=== PATIENT | female | born 2000 | race Caucasian/White ===

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

== ENCOUNTER 2021-01-03 17:47 | Outpatient (CLI) | payer BC, OTHER ==
[2021-01-03 18:30] LABS: Appearance,Urine Clear (Clear); Bilirubin,Urine Negative (Negative); Blood,Urine Negative (Negative); Color,Urine Yellow; Glucose,Urine (UA) Negative (Negative); Ketones,Urine Negative (Negative); Leukocyte Esterase,Urine Negative (Negative); Nitrite,Urine Negative (Negative); PH, Urine 7.5 (5.0-8.0); Protein,Urine Negative (Negative); Specific Gravity,Urine 1.012 (1.001-1.035); Urobilinogen,Urine <2.0 mg/dL (<2.0)
[2021-01-03 18:48] VITALS: BP 115/71; PULSE 101; RESP 15; TEMP 98
--- NOTE | 2021-01-23 08:05 | P.MSEPDOC ---
Presenting Problems - Arrival Data Date of Arrival on Unit: 01/03/21 Time of Arrival on Unit: 17:52 Mode of Transport: Ambulatory - Complaint OB-Reason for Admission/Chief Complaint: Other Comment: pelvic and rectal pressure Medical History - Information : 2 Para: 1 Term: 1 : 0 Abortions: Spontaneous or Elective: 0 Number of Living Children: 1 - Gestational Age Gestational Age by TYRON (wks/days): 34 Weeks and 2 Days Review of Systems - Review of Systems Constitutional: No problems Breast: No problems ENT: No problems Cardiovascular: No problems Respiratory: No problems Gastrointestinal: No problems Genitourinary: No problems Musculoskeletal: No problems Neurological: No problems Skin: No problems Vital Signs - Temperature Temperature: 98 F Temperature Source: Temporal Artery Scan - Pulse Brachial Pulse Rate: 101 Pulse Assessment Method: Automatic Cuff - Respirations Respiratory Rate: 15 Oxygen Delivery Method: Room Air O2 Sat by Pulse Oximetry: 99 - Blood Pressure Right Arm Blood Pressure: 115/71 Blood Pressure Mean: 85 Blood Pressure Source: Automatic Cuff Medical Screen Scoring (Pre) - Cervical Exam Dilation: 0 cm = 0 Membranes: Intact - Uterine Contractions Frequency: N/A Duration: N/A Intensity: N/A - Maternal Vital Signs Maternal Temperature: N/A Maternal Blood Pressure: N/A Signs of Preeclampsia: N/A Maternal Respirations: N/A - Maternal Trauma Maternal Trauma: N/A - Assessment - Baby A Baseline FHR: 140 Heart Rate - NICHD Category: Category I (Normal) = 0 NST: Reactive Position: N/A Station: N/A - Total Score - Baby A Total Score - Baby A: 0 - Total Score - Baby B Total Score - Baby B: 0 - Total Score - Baby C Total Score - Baby C: 0 - Level of Risk - Baby A Level of Risk - Baby A: Low (0-5) - Level of Risk - Baby B Level of Risk - Baby B: Low (0-5) - Level of Risk - Baby C Level of Risk - Baby C: Low (0-5) Physician Notification (Pre) - Physician Notified Physician Notified Date: 01/03/21 Physician Notified Time: 18:20 New Order Received: Yes - Notification Comment Comment: pt FT, thick and high, posterior. U/A WNL. pt dc'd and will f/u in office on 01/13/2021 Disposition - Disposition OB Disposition: Triage, Discharge to home, Written follow up instructions reviewed Discharge Date: 01/03/21 Discharge Time: 18:35 I agree with the RN Medical Screening Exam: No Physician's MSE Comment: inadequate documentation Case reviewed; plan agreed upon as documented in EMR&OBIX.: No Diagnosis: pelvic pressure 34 weeks
== END 2021-01-03 18:35 | disposition home or self-care (01) ==
LOC: FBPOP 17:47
PROVIDERS: ATTEND Obstetrics & Gynecology
DX: O26.93 Pregnancy related conditions, unspecified, third trimester (principal); Z3A.34 34 weeks gestation of pregnancy
CPT/HCPCS: 59025; 81003; 99213

== ENCOUNTER 2021-02-06 06:00 | Inpatient (IN) | payer BC, OTHER ==
[2021-02-06] MEDS ORDERED: OXYTOCIN 10 UNIT/ML 1 ML VIAL IM PRN (06:15)
[2021-02-06] MEDS ORDERED: CARBOPROST TROMETHAMINE 250 MCG/ML 1 ML AMP IM PRN (06:15)
[2021-02-06] MEDS ORDERED: TERBUTALINE 1 MG/ML VIAL SQ PRN (06:15)
[2021-02-06] MEDS ORDERED: LIDOCAINE 0.5% (PF) 5 MG/ML (50 ML SDV) SQ PRN (06:15)
[2021-02-06] MEDS ORDERED: OXYTOCIN 30 UNITS/500 ML NS 30 UNIT in SALINE 1 500ML.BAG IV SCH ×2 (06:15→15:15)
[2021-02-06] MEDS ORDERED: METHYLERGONOVINE 0.2 MG/ML 1 ML AMP IM PRN (06:15)
[2021-02-06] MEDS ORDERED: AMPICILLIN 2,000 MG in SODIUM CHLORIDE 0.9% 100 ML IVPB ONE (06:30)
[2021-02-06] MEDS: LACTATED RINGERS 1,000 ML IV SCH ×3 (06:37→22:56)
[2021-02-06 06:42] LABS: Basophils % (A) 0 %; Eosinophils # (A) 0.1 k/uL (0-0.7); Eosinophils % (A) 1 %; HCT 41.2 % (34.0-46.0); HGB 14.1 gm/dL (11.4-16.0); Lymphocytes % (A) 15 %; MCH 32.5 pg (25.0-35.0); MCHC 34.3 g/dL (31.0-37.0); MCV 94.9 fL (80.0-100.0); Mean Platelet Volume 6.7; Monocytes # (A) 0.5 k/uL (0-1.0); Monocytes % (A) 8 %; Neutrophils # (A) 4.8 k/uL (1.3-7.7); Neutrophils % (A) 72 %; Platelet Count 205 k/uL (150-450); RBC 4.34 m/uL (3.80-5.40); RDW 13.4 % (11.5-15.5); WBC 6.7 k/uL (3.8-10.6)
[2021-02-06] MEDS ORDERED: BUTORPHANOL 1 MG/ML 1 ML VIAL IV PRN (08:33)
[2021-02-06] MEDS ORDERED: PRENATAL VIT-IRON-FOLIC ACID 1 EACH CAP PO SCH (09:00)
[2021-02-06] MEDS: AMPICILLIN 1,000 MG in SODIUM CHLORIDE 0.9% 50 ML IVPB SCH ×2 (10:32→21:11)
[2021-02-06] MEDS ORDERED: ROPIVACAINE 100 MG, fentaNYL (PF) 200 MCG in SODIUM CHLORIDE 0.9% 76 ML EPIDURAL ONE (13:22)
[2021-02-06] MEDS ORDERED: SIMETHICONE 80 MG CHEWABLE PO PRN (15:11)
[2021-02-06] MEDS ORDERED: diphenhydrAMINE 50 MG CAP PO PRN (15:11)
[2021-02-06] MEDS ORDERED: LANOLIN CREAM 5 GM TUBE TOPICAL PRN (15:11)
[2021-02-06] MEDS ORDERED: diphenhydrAMINE 25 MG CAP PO PRN (15:11)
[2021-02-06] MEDS ORDERED: ZOLPIDEM 5 MG TAB PO PRN (15:11)
[2021-02-06] MEDS ORDERED: ACETAMINOPHEN TAB 325 MG TAB PO PRN (15:11)
[2021-02-06] MEDS ORDERED: diphenhydrAMINE 50 MG/ML 1 ML VIAL IVP PRN ×2 (15:11)
[2021-02-06] MEDS ORDERED: BENZOCAINE/MENTHOL SPRAY 1 GM/SPRAY AEROSOL TOPICAL PRN (15:11)
[2021-02-06] MEDS ORDERED: HYDROCORTISONE 2.5% RECTAL CREAM 30 GM TUBE RECTAL PRN (15:11)
--- NOTE | 2021-02-06 15:14 | P.PROBDLV ---
Vaginal Delivery Note - . Vaginal Delivery Note: This is a 20-year-old at 39 and one sevenths weeks that presented to labor and delivery for elective induction of labor. Patient was admitted to labor and delivery Pitocin induction of labor was begun. Once regular contractions were noted amniotomy is performed and clear fluid was obtained. Patient pressed to labor eventually becoming uncomfortable and requesting epidural placement. Epidural was placed without difficulty by the anesthesia department. Patient progressed to complete began pushing and had a normal spontaneous vaginal delivery of a viable male infant at 1459, loose nuchal cord was delivered through. Weight of infant 7 lbs. 13 oz. and Apgars of 9 and 9 at one and 5 minutes respect weight. After two-minute delayed the umbilical cord was doubly clamped and cut and the placenta was delivered spontaneously intact with three- vessel cord being noted. On inspection the patient's vaginal vault bilateral labial lacerations were noted. Superficial on the left, 3 simple sutures of 4-0 chromic were used to obtain closure of the right labial laceration.. Hemostasis was appreciated. The uterus is noted be firm and below the umbilicus. Estimated blood loss 200 mL. All counts were noted be correct 2 at the end of the procedure Mom and infant tolerated delivery well.
[2021-02-06] MEDS: IBUPROFEN 600 MG TAB PO SCH ×2 (16:52→22:43)
[2021-02-06] MEDS: SENNOSIDES-DOCUSATE SODIUM 1 EACH TAB PO SCH (20:13)
[2021-02-06] MEDS ORDERED: ESCITALOPRAM 20 MG TAB PO SCH (21:00)
[2021-02-07] MEDS: IBUPROFEN 600 MG TAB PO SCH (06:03)
[2021-02-07 08:04] VITALS: RESP 18
[2021-02-07] MEDS: SENNOSIDES-DOCUSATE SODIUM 1 EACH TAB PO SCH (08:21)
--- NOTE | 2021-02-07 10:02 | P.DS ---
Providers Date of admission: 02/06/21 06:00 Expected date of discharge: 02/07/21 Attending physician: Jaymie Jaime Primary care physician: Stated None - Discharge Diagnosis(es) (1) Positive GBS test Current Visit: No Status: Acute (2) Term Current Visit: No Status: Acute (3) Normal spontaneous vaginal delivery Current Visit: No Status: Acute Hospital Course: This is a 20-year-old at 39 and one sevenths weeks that presented to labor and delivery for elective induction of labor. Patient has been receiving routine care which has been essentially uncomplicated. Patient was noted to be group beta strep positive and was treated with antibiotics through labor. Patient was admitted to labor and delivery Pitocin induction of labor was begun per hospital protocol. Amniotomy was performed and clear fluid was obtained. Patient progressed through labor eventually becoming uncomfortable and requesting epidural placement. Epidural was placed without difficulty by the anesthesia department. Patient progressed to complete began pushing and had a normal spontaneous vaginal delivery of a viable male infant at 1459, weight of 7 lbs. 13 oz. and Apgars of 9 and 9 at one and 5 minutes respect weight. Patient did sustain bilateral labial lacerations during delivery the left was repaired with 3 single sutures of 4-0 chromic. Patient's course has been uneventful. On this post day #1 she is ambulating and voiding without difficulty. She states her pain is well-controlled. She is breast- feeding. She denies concerns and wishes discharge home at 24 hours. Plan - Discharge Summary New Discharge Prescriptions: No Action Escitalopram [Lexapro] 20 mg PO HS Ucu-Bexm-Gwelt Acid [-U Capsule (formulary)] 1 cap PO DAILY Discharge Medication List Escitalopram [Lexapro] 20 mg PO HS 11/07/18 [History] [id number] Acid [-U Capsule (formulary)] 1 cap PO DAILY [History] Follow up Appointment(s)/Referral(s): Jaymie Jaime DO [Doctor of Osteopathic Medicine] - 4 Weeks Patient Instructions/Handouts: Vaginal Delivery (DC), Vaginal Delivery (GEN) Discharge Disposition: HOME SELF-CARE
[2021-02-07 17:31] VITALS: BP 115/70; PULSE 59; TEMP 98.5
--- NOTE | 2021-02-09 08:49 | P.HPOB ---
History of Present Illness H&P Date: 02/06/21 Chief Complaint: IUP at 39 and 1/sevenths weeks This is a 20-year-old at 39 and one sevenths weeks that presents to labor and delivery for elective induction of labor. Patient has been receiving routine care which has been essentially uncomplicated. This morning patient notes good movement she notes an occasional contraction denies vaginal bleeding or loss of fluid. Review of Systems Constitutional: Denies chills, Denies fatigue, Denies fever Ears, nose, mouth and throat: Denies headache Cardiovascular: Reports leg edema Respiratory: Denies dyspnea Gastrointestinal: Denies constipation, Denies diarrhea, Denies nausea, Denies vomiting Genitourinary: Reports Past Medical History Past Medical History: No Reported History History of Any Multi-Drug Resistant Organisms: None Reported Past Surgical History: No Surgical Hx Reported Past Anesthesia/Blood Transfusion Reactions: No Reported Reaction Additional Past Anesthesia/Blood Transfusion Reaction / Comment(s): no hx Past Psychological History: Depression Additional Psychological History / Comment(s): lexapro Smoking Status: Never smoker Past Alcohol Use History: None Reported Past Drug Use History: None Reported - Past Family History Mother Family Medical History: No Reported History Father Family Medical History: No Reported History Medications and Allergies Home Medications Medication Instructions Recorded Confirmed Type Escitalopram [Lexapro] 20 mg PO HS 11/07/18 02/06/21 History [id number]-Vsyio Acid 1 cap PO DAILY 11/07/18 02/06/21 History [-U Capsule (formulary)] Allergies Allergy/AdvReac Type Severity Reaction Status Date / Time No Known Allergies Allergy Verified 02/06/21 06:14 Exam Osteopathic Statement: *. No significant issues noted on an osteopathic structural exam other than those noted in the History and Physical/Consult. 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 heart tones are noted to be category 1 and she is lloyd irregularly. Results Result Diagrams: 02/06/21 06:25 Assessment and Plan (1) Positive GBS test Current Visit: No Status: Acute Code(s): B95.1 - STREPTOCOCCUS, GROUP B, CAUSING DISEASES CL[facility]SD [facility] SNOMED Code(s): 986899018 (2) Term Current Visit: No Status: Acute Code(s): Z34.80 - ENCOUNTER FOR SUPRVSN OF NORMAL , UNSP TRIMESTER SNOMED Code(s): 21823015 Plan: 20-year-old at 39 and one sevenths weeks presents to labor and delivery for elective induction of labor. Patient is admitted to labor and delivery and Pitocin induction of labor is begun per hospital protocol. Patient is offered epidural and Stadol, she will decide which at the time. Anticipate spontaneous vaginal delivery later today.
== END 2021-02-07 16:45 | disposition home or self-care (01) | DRG 807 ==
LOC: 4FBP 06:00
PROVIDERS: ADMIT Obstetrics & Gynecology Obstetrics; ATTEND Obstetrics & Gynecology Obstetrics
DX: O99.824 Streptococcus B carrier state complicating childbirth (principal); Z37.0 Single live birth; O69.81X0 Labor and delivery complicated by cord around neck, without compression, not applicable or unspecified; O70.0 First degree perineal laceration during delivery; Z3A.39 39 weeks gestation of pregnancy; Z79.899 Other long term (current) drug therapy; Z86.59 Personal history of other mental and behavioral disorders
CPT/HCPCS: 85025; 86850; 86900; 86901